=== PATIENT | female | born 1975 | race African-American/Black ===

== ENCOUNTER 2017-04-23 09:49 | Emergency (ER) | payer OTHER ==
[~2017-04-23] VITALS: Ht 162.6 cm; Wt 72.6 kg
[~2017-04-23 09:49] MED LIST: BACTRIM-DS1 EA PO; IBUPROFEN600 MG PO; KEFLEX500 MG PO; NKM
[2017-04-23 10:06] VITALS: BP 117/75
[2017-04-23] MEDS ORDERED: Azithromycin 250mg tab ORAL ONE (10:15)
[2017-04-23] MEDS ORDERED: Ipratropium 0.02% Inh Soln 2.5ml UD HHN ONE (10:15)
[2017-04-23] MEDS ORDERED: Albuterol ud Inhalation HHN ONE (10:15)
--- NOTE | 2017-04-23 10:15 | Emergency Room Report ---
History of Present Illness General Chief Complaint: Upper Respiratory Illness Source: Patient Present Illness HPI Several days of worsening cough with productive green phlegm and wheezing. Has used inhaler in past and currently smoking. In drug rehab facility. Feverish, but not documented. Pain in chest is 7/10 - worse with coughing, somewhat sharp pressure. Nasal congestion. No abdominal pain, sore throat. No NVD. No rashes. Not . Allergies: Coded Allergies: No Known Allergies (Unverified , 09/10/12) Patient History Past Medical History: see triage record Social History: Reports: smoking Social History Narrative in rehab Last Menstrual Period: 04/19/17 Reviewed Nursing Documentation: PMH: Agreed, PSxH: Agreed Nursing Documentation-PMH Past Medical History: No Stated History Review of Systems All Other Systems: negative except mentioned in HPI Physical Exam Vital Signs Date Time Temp Pulse Resp B/P Pulse Ox O2 Delivery O2 Flow Rate FiO2 04/23/17 09:52 97.3 79 16 113/72 99 Room Air Sp02 EP Interpretation: reviewed, normal General Appearance: well appearing, no apparent distress Head: normocephalic, atraumatic Eyes: bilateral eye PERRL, bilateral eye normal inspection ENT: hearing grossly normal, normal pharynx, normal voice, nasal congestion Neck: full range of motion, supple Respiratory: no respiratory distress, speaking full sentences, wheezing, expiration - post tussive also ronchi Cardiovascular #1: regular rate, rhythm Cardiovascular #2: 2+ radial (L) Gastrointestinal: normal inspection, non tender Musculoskeletal: back normal, digits/nails normal, normal range of motion, no calf tenderness Neurologic: alert, oriented x3, normal gait, grossly normal Psychiatric: mood/affect normal Skin: no rash Medical Decision Making Diagnostic Impression: Primary Impression: Bronchospasm with bronchitis, acute ER Course Patient with URI with purulent sputum and sinus fullness and wheezing. DDx: asthmatic bronchitis, sinusitis, viral process. Will treat with albuterol and antibiotics with decongestants. Patient improved with breathing treatment. No steroids indicated as this sounds bacterial. Discussed with patient importance of stopping smoking. Patient stable for outpatient observation and treatment. Last Vital Signs Date Time Temp Pulse Resp B/P Pulse Ox O2 Delivery O2 Flow Rate FiO2 04/23/17 12:11 97.1 85 17 113/79 100 Room Air Status: improved Disposition: HOME, SELF-CARE Condition: Improved Scripts Chlorpheniramine Maleate (CHLOR-TRIMETON) 4 Mg Tablet 4 MG PO Q6HR, #10 TAB Prov: Wolf Perry M.D. 04/23/17 Dextromethorphan Hb/Doxylamine (ROBITUSSIN NIGHTTIME COUGH DM) 237 Ml Liquid 5 ML PO Q6HR, #120 ML Prov: Wolf Perry M.D. 04/23/17 Azithromycin* (ZITHROMAX*) 250 Mg Tablet 250 MG ORAL DAILY for 4 Days, TAB Prov: Wolf Perry M.D. 04/23/17 Referrals: Emri PEACOCK,REFERRING (PCP) Wolf Perry M.D. Apr 23, 2017 10:15
[2017-04-23] MEDS ORDERED: CHLOR-TRIMETON4 MG PO (12:03)
[2017-04-23] MEDS ORDERED: ROBITUSSIN NIG237 ML PO (12:03)
[2017-04-23] MEDS ORDERED: AZITHROMYCIN250 MG ORAL (12:03)
[2017-04-23 12:10] VITALS: BP 113/79
[2017-04-23 12:11] VITALS: BP 113/79
== END 2017-04-23 12:12 | disposition home or self-care (01) ==
LOC: EMR 10:07
DX: J20.9 Acute bronchitis, unspecified (principal); F17.200 Nicotine dependence, unspecified, uncomplicated
CPT/HCPCS: 94640; 99284; Q0144

== ENCOUNTER 2017-04-30 09:31 | Emergency (ER) | payer OTHER ==
[~2017-04-30] VITALS: Ht 162.6 cm; Wt 72.6 kg
[~2017-04-30 09:31] MED LIST changes: +AZITHROMYCIN250 MG ORAL; +CHLOR-TRIMETON4 MG PO; +ROBITUSSIN NIG237 ML PO
[2017-04-30 09:57] VITALS: BP 113/74
[2017-04-30] MEDS ORDERED: Methocarbamol 750mg tab ORAL ONE (10:30)
[2017-04-30] MEDS ORDERED: Ketorolac 60mg Inj IM ONE (10:30)
[2017-04-30] MEDS ORDERED: ROBAXIN-750750 MG PO (10:38)
[2017-04-30] MEDS ORDERED: IBUPROFEN600 MG ORAL (10:38)
--- NOTE | 2017-04-30 10:41 | Emergency Room Report ---
History of Present Illness General Chief Complaint: Lower Back Pain or Injury Source: Patient Present Illness HPI 41YOF [employer] patient with left lower back pain s/p "moving stuff from apartment" yesterday afternoon. Pain worse with breathing, moving. No associated lower extremity weakness, fever/chills, urinary complaints Didnt take OTC meds Allergies: Coded Allergies: No Known Allergies (Unverified , 09/10/12) Patient History Past Medical History: none Past Surgical History: none Pertinent Family History: none Social History: Denies: alcohol use, drug use, smoking Last Menstrual Period: 2 weeks ago Now: No Immunizations: UTD Reviewed Nursing Documentation: PMH: Agreed, PSxH: Agreed Nursing Documentation-PMH Past Medical History: No Stated History Review of Systems All Other Systems: negative except mentioned in HPI Physical Exam Vital Signs Date Time Temp Pulse Resp B/P Pulse Ox O2 Delivery O2 Flow Rate FiO2 04/30/17 09:39 98.2 69 18 108/71 98 Room Air Sp02 EP Interpretation: reviewed, normal General Appearance: normal inspection, well appearing, no apparent distress, alert, GCS 15, non-toxic Head: normocephalic, atraumatic Eyes: bilateral eye EOMI, bilateral eye PERRL ENT: normal ENT inspection, hearing grossly normal, normal voice Neck: normal inspection, full range of motion, supple, no bony tend Respiratory: normal inspection, lungs clear, normal breath sounds, no respiratory distress, no retraction, no wheezing Cardiovascular #1: regular rate, rhythm, no edema Gastrointestinal: normal inspection, normal bowel sounds, non tender, soft, no guarding, no hernia Genitourinary: no CVA tenderness Musculoskeletal: normal inspection, back normal, normal range of motion, Karan' s Sign negative Neurologic: normal inspection, alert, oriented x3, responsive, construction administrator III-XII nml as tested, motor strength/tone normal, speech normal Psychiatric: normal inspection, judgement/insight normal, mood/affect normal Skin: normal inspection, normal color, no rash Lymphatic: normal inspection Medical Decision Making Diagnostic Impression: Primary Impression: Low back pain Qualified Codes: M54.5 - Low back pain ER Course Acute LBP VSS. Afebrile No focal neuro deficits Dt strain from lifting Rx Robaxin, NSAIDs PMD followup DC home Last Vital Signs Date Time Temp Pulse Resp B/P Pulse Ox O2 Delivery O2 Flow Rate FiO2 7/17/17 09:57 98.1 67 17 113/74 99 Room Air Status: improved Disposition: HOME, SELF-CARE Condition: Improved Scripts Ibuprofen* (MOTRIN*) 600 Mg Tablet 600 MG ORAL THREE TIMES A DAY for 7 Days, #30 TAB 0 Refills Prov: DEAN SEBASTIAN M.D. 04/30/17 Methocarbamol* (ROBAXIN-750*) 750 Mg Tablet 750 MG PO TID for 7 Days, #30 TAB 0 Refills Prov: DEAN SEBASTIAN M.D. 04/30/17 Referrals: Emir PEACOCK,REFERRING (PCP) Patient Instructions: Lumbosacral Strain Additional Instructions: - Take ibuprofen with robaxin and food up to 3x a day for lower back pain DEAN SEBASTIAN M.D. Apr 30, 2017 10:41
[2017-04-30 10:43] VITALS: BP 113/74
== END 2017-04-30 10:45 | disposition home or self-care (01) ==
LOC: EMR 09:54
DX: M54.5 Low back pain (principal)
CPT/HCPCS: 96372; 99284

== ENCOUNTER 2020-02-28 12:09 | Emergency (ER) | payer OTHER ==
[~2020-02-28] VITALS: Ht 162.6 cm; Wt 74.8 kg
[~2020-02-28 12:09] MED LIST changes: +IBUPROFEN600 MG ORAL; +ROBAXIN-750750 MG PO
[2020-02-28 12:41] VITALS: BP 123/70
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
[2020-02-28] MEDS ORDERED: Cephalexin 500mg cap ORAL ONE (13:15)
[2020-02-28] MEDS ORDERED: Bactrim-DS 1 tab ORAL ONE (13:15)
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
[2020-02-28] MEDS ORDERED: IBU800 MG PO (13:23)
[2020-02-28] MEDS ORDERED: CEPHALEXIN500 MG ORAL (13:23)
[2020-02-28] MEDS ORDERED: BACTRIM DS TAB1 EAC1 ORAL (13:23)
[2020-02-28] MEDS ORDERED: SILVER SULFADIA50 GM TP (13:25)
[2020-02-28 13:32] VITALS: BP 120/80
--- NOTE | 2020-02-28 13:32 | NUR ---
ER DISCHARGE NOTE: Patient is cleared to be discharged per ERMD, pt is aox4, on room air, with stable vital signs. pt was given dc and prescription instructions, pt was able to verbalize understanding, pt id band removed. pt is able to ambulate with steady gait. pt took all belongings.
== END 2020-02-28 13:32 | disposition home or self-care (01) ==
LOC: EMR 12:26
DX: T24.212A Burn of second degree of left thigh, initial encounter (principal); X12.XXXA Contact with other hot fluids, initial encounter; Y92.9 Unspecified place or not applicable
CPT/HCPCS: 99282